=== PATIENT | female | born 1975 | race Caucasian/White ===

== ENCOUNTER → 2017-08-01 17:13 | Outpatient (CLI) | payer OTHER ==
[2015-01-20 08:33] VITALS: BMI 22.1
[~2017-08-01 17:13] MED LIST: ACETAMINOPHEN325 MG PO; ADVIL200 MG PO; DESERYL100 MG PO; DILAUDID4 MG PO; ELIQUIS2.5 MG PO; FERROUS SULFAT325 MG PO; HYDROCODONE-APA1 TAB PO; PERCOCET 10/3251 TA1 PO
== END | disposition home or self-care (01) ==
LOC: D.MAMMO 07-21 15:15
DX: Z12.31 Encounter for screening mammogram for malignant neoplasm of breast (principal)

== ENCOUNTER → 2017-09-08 05:20 | Day surgery (SDC) | payer MEDICAID ==
[2017-09-07 17:06] LABS: HEMOGLOBIN 11.2 g/dL (12-16); MCHC 30.3 g/dL (31.0-37.0); MCV 75.8 fL (80.0-100.0); MEAN PLATELET VOLUME 9.4 fL (7.4-10.4); RBC 4.88 10x6/uL (4.00-5.40); RDW 26.4 % (11.5-14.5); WBC 6.1 10x3/uL (4.8-10.8)
[~2017-09-08] VITALS: Ht 157.5 cm; Wt 65.8 kg
--- NOTE | ~2017-09-08 | OP ---
PATIENT NAME: NOBLE RAMOS MEDICAL RECORD: [id number] :75 LOCATION:D.[facility] ADMISSION DATE: SURGEON: LAURA REYNOSO MD DATE OF OPERATION: 09/08/2017 PREOPERATIVE DIAGNOSIS: Painful cyst of the left index finger PIP joint. POSTOPERATIVE DIAGNOSIS: Painful cyst of the left index finger PIP joint. PROCEDURE: Excision of painful cyst, PIP joint. SURGEON: Laura Reynoso MD ANESTHESIA: General. INTRAOPERATIVE COMPLICATIONS: None. SUMMARY OF PATHOLOGIC FINDINGS: The cyst was removed en bloc, it was not opened intraoperatively, it was sent for pathology for permanent section. OPERATIVE SUMMARY IN DETAIL: After obtaining the appropriate preoperative orthopedic surgery consent as well as anesthetic consultation, evaluation and clearance, the patient was brought to the operating room and placed on the operating table in supine position. After general laryngeal mask was administered, tourniquet was placed about the proximal aspect of the left upper extremity. The left upper extremity was then prepped and draped in routine sterile fashion. The arm was elevated and exsanguinated, tourniquet inflated to 250 mmHg. Elliptical incision was made about the cyst, taken down to the level of the subcutaneous tissue. It was excised in its entirety and sent en bloc for permanent section. The wound was irrigated and closed with 4-0 Prolene in routine interrupted fashion. The area was locally infiltrated with 0.25% Marcaine plain. Sterile dressings were applied. Tourniquet was deflated. The patient was awakened, taken to recovery room in stable condition. All final needle and sponge counts were correct. TRANSINT:[id number] Voice Confirmation ID: [id number] DOCUMENT ID: [id number] LAURA REYNOSO MD at 1641 CC: [id number] DICTATION DATE: 09/08/17 0940 [employer] PRINC[employer]AL: 09/08/17 1211 [facility] [address] [place] [address]
[2017-09-08 06:53] VITALS: BP 115/68; Ht 157.5 cm; Wt 65.8 kg
== END | disposition home or self-care (01) ==
LOC: D.OPS 05:20 → D.PAN 08:45 → D.OPS 14:15 → D.PAN 14:15
PROVIDERS: Anesthesiology
DX: M25.842 Other specified joint disorders, left hand (principal); Z01.812 Encounter for preprocedural laboratory examination

== ENCOUNTER 2018-07-03 05:49 | Day surgery (SDC) | payer MEDICAID ==
[~2018-07-03] VITALS: Ht 157.5 cm; Wt 68.0 kg
--- NOTE | ~2018-07-03 | OP ---
PATIENT NAME: NOBLE RAMOS MEDICAL RECORD: [id number] :75 [facility] ADMISSION DATE: SURGEON: GODWIN DIAZ MD DATE OF OPERATION: 07/03/2018 PREOPERATIVE DIAGNOSIS: Chronic tonsillitis. POSTOPERATIVE DIAGNOSIS: Chronic tonsillitis. PROCEDURE: Tonsillectomy. SURGEON: Godwin Diaz MD ANESTHESIA: General orotracheal. BLOOD LOSS: Less than 5 cc. SPECIMENS: Right and left tonsil. COMPLICATIONS: None. DISPOSITION: Recovery stable. PROCEDURE NOTE: She was brought to the operating room and placed in supine position, sedated and intubated by anesthesia. The eyes were taped. Table was turned 90 degrees. Head drapes were applied and she was positioned for tonsillectomy. Using a headlight, a Rafael-Williams mouth gag was carefully inserted and elevated on a towel on her chest. The palate was examined and palpated as normal. A red rubber catheter was placed through the right side of the nose and the pharynx was grasped with tonsil clamp to retract the soft palate. Using a mirror, the nasopharynx was examined. The choanae and eustachian orifices were normal bilaterally. There was no significant adenoid tissue. The red rubber catheter was let down and removed. The right tonsil was grasped at the superior pole with a straight Allis clamp. There was a tremendous amount of caseous material. Spatula tip cautery on a setting of 9 was used to dissect out the tonsil along its capsule, preserving the anterior and posterior tonsillar pillar. The left tonsil was removed in the same fashion. Then, both sides of the nose were irrigated with saline. The pharynx was suctioned. Tonsillar fossae were agitated. Suction cautery on a setting of 20 was used to control minimal oozing. With the field clean and dry, Rafael-Williams mouth gag was let down and removed, she was awakened, extubated, and transported to recovery in good condition. No complications. TRANSINT:[id number] Voice Confirmation ID: [id number] DOCUMENT ID: [id number] GODWIN DIAZ MD at 1821 CC: [id number] DICTATION DATE: 07/03/18 0958 [employer] AS[employer]ER: 07/03/18 1152 [facility] 07/03/18 [facility] [address] [place] [address]
--- NOTE | ~2018-07-03 | HP ---
PATIENT: NOBLE RAMOS MEDICAL RECORD: [id number] ACCOUNT: [id number] LOCATION:[facility] : 75 ADMISSION DATE: 07/03/18 PCP: RIGOBERTO LARSON DO HISTORY AND PHYSICAL EXAMINATION PREOPERATIVE HISTORY AND PHYSICAL HISTORY OF PRESENT ILLNESS: Noble is 43 years old. She has had chronic problems with her tonsils and tonsilliths for a long time. She is being admitted for tonsillectomy. PAST MEDICAL HISTORY: Otherwise negative. PAST SURGICAL HISTORY: Includes surgery for ankle fracture, times 2, laparoscopy. CURRENT MEDICATIONS: Tizanidine, Terbinaforce, docusate sodium. ALLERGIES: No known drug allergies. PHYSICAL EXAMINATION: GENERAL: She is a good historian, developmentally normal. FACE: Normal, symmetric, no lesions. EYES: Sclerae and conjunctivae are normal. EARS: Canals and TMs are normal. NOSE: No mass, polyps or drainage. ORAL CAVITY AND OROPHARYNX: 3+ cryptic tonsils with deep crypts and copious tonsilliths. NECK: No masses, no adenopathy. CHEST: Clear. CARDIOVASCULAR: Regular rate and rhythm, no murmur. EXTREMITIES: Normal. IMPRESSION: Chronic caseous tonsillitis. PLAN: Tonsillectomy. TRANSINT:[id number] Voice Confirmation ID: [id number] DOCUMENT ID: [id number] GODWIN JACOBS MD at 1821 CC: [id number] DICTATION DATE: 06/29/18 1337 REGISTRY NURSE: 06/29/18 1427 [facility] 07/03/18 [place] [id number]
[2018-07-03 06:10] LABS: HEMATOCRIT 33.4 % (36.0-48.0); HEMOGLOBIN 10.5 g/dL (12-16); MCH 25.1 pg (26.0-34.0); MCHC 31.4 g/dL (31.0-37.0); MCV 79.7 fL (80.0-100.0); RBC 4.19 10x6/uL (4.00-5.40); RDW 15.8 % (11.5-14.5); WBC 6.4 10x3/uL (4.8-10.8)
[2018-07-03] MEDS ORDERED: ZANAFLEX4 MG PO (07:25)
[2018-07-03 07:38] VITALS: BP 119/77; Ht 157.5 cm; Wt 68.0 kg
[2018-07-03 09:38] LABS: HCG URINE NEGATIVE (NEGATIVE)
== END 2018-07-03 11:32 | disposition home or self-care (01) ==
LOC: D.OPS 05:49 → D.PAN 08:25 → D.OPS 08:25 → D.PAN 09:30 → D.OPS 11:32
PROVIDERS: Anesthesiology; Otolaryngology
DX: J35.01 Chronic tonsillitis (principal); J03.90 Acute tonsillitis, unspecified

== ENCOUNTER 2018-11-30 14:23 | Outpatient (CLI) | payer MEDICAID ==
[~2018-11-30] VITALS: Ht 157.5 cm; Wt 66.8 kg
[~2018-11-30 14:23] MED LIST changes: +ZANAFLEX4 MG PO
[2018-11-30 15:00] VITALS: BP 110/70; Ht 157.5 cm; Wt 66.8 kg
--- NOTE | 2018-11-30 17:09 | NUR ---
PT RECEIVED INFUSION OF FERRLECIT 125 MG. NO RXN NOTED. NO REDNESS/SWELLING AT IV SITE. PT DENIES NEEDS/PAIN AT THIS TIME. DC'D IV CATH FULLY INTACT.
--- NOTE | 2018-11-30 17:18 | NUR ---
PT LEFT UNIT AMBULATING AT 1717
== END 2018-11-30 17:17 | disposition home or self-care (01) ==
LOC: D.OPS 14:23
PROVIDERS: ATTEND Internal Medicine Hematology & Oncology
DX: D50.0 Iron deficiency anemia secondary to blood loss (chronic) (principal)

== ENCOUNTER 2018-12-07 15:46 | Outpatient (CLI) | payer MEDICAID ==
[~2018-12-07] VITALS: Ht 157.5 cm; Wt 65.9 kg
[2018-12-07 16:09] VITALS: Ht 157.5 cm; Wt 65.9 kg
--- NOTE | 2018-12-07 17:18 | NUR ---
INFUSION INITIATED PER RIGHT PIV PER ORDERS. REGULAR TRAY ORDERED FOR PT.
== END 2018-12-07 18:10 | disposition home or self-care (01) ==
LOC: D.OPS 15:46
PROVIDERS: ATTEND Internal Medicine Hematology & Oncology
DX: D50.9 Iron deficiency anemia, unspecified (principal)

== ENCOUNTER 2018-12-14 13:58 | Outpatient (CLI) | payer MEDICAID ==
[~2018-12-14] VITALS: Ht 157.5 cm; Wt 66.8 kg
[2018-12-14 14:17] VITALS: BP 104/65; Ht 157.5 cm; Wt 66.8 kg
== END 2018-12-14 15:40 | disposition home or self-care (01) ==
LOC: D.OPS 13:58
PROVIDERS: ATTEND Internal Medicine Hematology & Oncology
DX: D50.9 Iron deficiency anemia, unspecified (principal)

== ENCOUNTER 2018-12-21 14:10 | Outpatient (CLI) | payer MEDICAID ==
[~2018-12-21] VITALS: Ht 157.5 cm; Wt 65.9 kg
[2018-12-21 14:24] VITALS: BP 103/69; Ht 157.5 cm; Wt 65.9 kg
== END 2018-12-21 16:07 | disposition home or self-care (01) ==
LOC: D.OPS 14:10
PROVIDERS: ATTEND Internal Medicine Hematology & Oncology
DX: D50.9 Iron deficiency anemia, unspecified (principal)

== ENCOUNTER 2018-12-28 14:10 | Outpatient (CLI) | payer MEDICAID ==
[~2018-12-28] VITALS: Ht 157.5 cm; Wt 65.9 kg
--- NOTE | 2018-12-28 15:40 | NUR ---
INFUSION OF FERRLICET IV INITIATED BY Mustapha QUINN RN.
[2018-12-28 15:45] VITALS: BP 112/63; Ht 157.5 cm; Wt 65.9 kg
--- NOTE | 2018-12-28 16:40 | NUR ---
INFUSION COMPLETED. IV DC'D WITH CATHETER INTACT.
--- NOTE | 2018-12-28 16:45 | NUR ---
WRITTEN AND VERBAL DC INST. GIVEN TO PT. VERBALIZED UNDERSTANDING.
--- NOTE | 2018-12-28 16:55 | NUR ---
DC'D HOME VIA PRIVATE VEHICLE. AMBULATED TO VEHICLE. STABLE AT TIME OF DC.
== END 2018-12-28 16:55 | disposition home or self-care (01) ==
LOC: D.OPS 14:10
PROVIDERS: ATTEND Internal Medicine Hematology & Oncology
DX: D50.9 Iron deficiency anemia, unspecified (principal)

== ENCOUNTER 2019-01-04 14:05 | Outpatient (CLI) | payer MEDICAID ==
[~2019-01-04] VITALS: Ht 157.5 cm; Wt 65.9 kg
[2019-01-04 14:27] VITALS: BP 112/68; Ht 157.5 cm; Wt 65.9 kg
== END 2019-01-04 16:00 | disposition home or self-care (01) ==
LOC: D.OPS 14:05
PROVIDERS: ATTEND Internal Medicine Hematology & Oncology
DX: D50.9 Iron deficiency anemia, unspecified (principal)

== ENCOUNTER 2019-11-06 13:19 | Outpatient (CLI) | payer MEDICAID ==
[~2019-11-06] VITALS: Ht 157.5 cm; Wt 68.2 kg
[2019-11-06 13:49] VITALS: BP 139/95; Ht 157.5 cm; Wt 68.2 kg
== END 2019-11-06 15:03 | disposition home or self-care (01) ==
LOC: D.OPS 13:19
PROVIDERS: ATTEND Internal Medicine Hematology & Oncology
DX: D50.0 Iron deficiency anemia secondary to blood loss (chronic) (principal); D64.9 Anemia, unspecified

== ENCOUNTER 2019-11-13 13:22 | Outpatient (CLI) | payer MEDICAID ==
[~2019-11-13] VITALS: Ht 157.5 cm; Wt 68.2 kg
[2019-11-13 13:44] VITALS: BP 125/80; Ht 157.5 cm; Wt 68.2 kg
--- NOTE | 2019-11-13 15:23 | NUR ---
PT LEFT UNIT AMBULATING AT 1523
== END 2019-11-13 15:23 | disposition home or self-care (01) ==
LOC: D.OPS 13:22
PROVIDERS: ATTEND Internal Medicine Hematology & Oncology
DX: D50.0 Iron deficiency anemia secondary to blood loss (chronic) (principal); D64.9 Anemia, unspecified

== ENCOUNTER 2019-11-20 13:10 | Outpatient (CLI) | payer MEDICAID ==
[~2019-11-20] VITALS: Ht 157.5 cm; Wt 68.2 kg
[2019-11-20 13:30] VITALS: Ht 157.5 cm; Wt 68.2 kg
== END 2019-11-20 14:54 | disposition home or self-care (01) ==
LOC: D.OPS 13:10
PROVIDERS: ATTEND Internal Medicine Hematology & Oncology
DX: D50.0 Iron deficiency anemia secondary to blood loss (chronic) (principal)

== ENCOUNTER 2019-11-27 13:16 | Outpatient (CLI) | payer MEDICAID ==
[~2019-11-27] VITALS: Ht 157.5 cm; Wt 68.2 kg
[2019-11-27 13:49] VITALS: Ht 157.5 cm; Wt 68.2 kg
--- NOTE | 2019-11-27 15:42 | NUR ---
1535 INFUSION HAS COMPLETED, IV DC'D WITH CATH INTACT. DC INSTS REVIEWED VOICED UNDERSTANDING RELEASED AMB.
== END 2019-11-27 15:40 | disposition home or self-care (01) ==
LOC: D.OPS 13:16
PROVIDERS: ATTEND Internal Medicine Hematology & Oncology
DX: D50.0 Iron deficiency anemia secondary to blood loss (chronic) (principal); D64.9 Anemia, unspecified

== ENCOUNTER 2019-12-04 13:09 | Outpatient (CLI) | payer MEDICAID ==
[~2019-12-04] VITALS: Ht 157.5 cm; Wt 68.2 kg
[2019-12-04 15:20] VITALS: Ht 157.5 cm; Wt 68.2 kg
== END 2019-12-04 16:11 | disposition home or self-care (01) ==
LOC: D.OPS 13:09
PROVIDERS: ATTEND Internal Medicine Hematology & Oncology
DX: D50.0 Iron deficiency anemia secondary to blood loss (chronic) (principal); D64.9 Anemia, unspecified

== ENCOUNTER → 2019-12-11 10:47 | Outpatient (CLI) | payer MEDICAID ==
--- NOTE | 2019-12-04 16:47 | NUR ---
1610 IRON INFUSED WITHOUT DIFFICULTY. IV REMOVED WITH CATHALON INTACT. VOICES NO OTHER NEEDS. DC'D HOME AMBULATORY. NO S/S OF ACUTE DISTRESS NOTED.
[~2019-12-11] VITALS: Ht 157.5 cm; Wt 68.2 kg
[2019-12-11 11:36] VITALS: BP 114/77; Ht 157.5 cm; Wt 68.2 kg
--- NOTE | 2019-12-11 11:40 | NUR ---
1122-IV STARTED IN LEFT HAND TIMES ONE ATTEMPT WITH 22G CAHTETER. SALINE LOCK FLUSHED. 1123-IRON INFUSION PLACED ON PUMP OVER ONE HOUR. SODA OFFERED.
== END | disposition home or self-care (01) ==
LOC: D.OPS 10:47
PROVIDERS: ATTEND Internal Medicine Hematology & Oncology
DX: D50.0 Iron deficiency anemia secondary to blood loss (chronic) (principal); D64.9 Anemia, unspecified